=== PATIENT | male | born 1975 | race African-American/Black ===

== ENCOUNTER 2021-03-22 20:35 | Inpatient (IN) | payer MEDICAID, SELFPAY ==
[~2021-03-22] VITALS: Ht 172.7 cm; Wt 77.3 kg
[2021-03-22 21:19] LABS: HEMATOCRIT 41.2 % (42.0-52.0); HEMOGLOBIN 13.8 g/dl (13.5-17.5); MEAN CORPUSCULAR HEMOGLOBIN 30.8 pg (27.0-33.0); MEAN CORPUSCULAR HGB CONC 33.5 g/dl (32.0-36.5); PLATELET COUNT, AUTOMATED 227 10^3/uL (150-450); RED BLOOD COUNT 4.48 10^6/uL (4.30-6.10); WHITE BLOOD COUNT 10.6 10^3/uL (4.0-10.0)
[2021-03-22 21:44] LABS: AMPHETAMINES LEVEL URINE NEGATIVE (NEGATIVE); BARBITURATES URINE NEGATIVE (NEGATIVE); BENZODIAZEPINES URINE NEGATIVE (NEGATIVE); CANNABINOIDS URINE NEGATIVE (NEGATIVE); COCAINE METABOLITE URINE NEGATIVE (NEGATIVE); METHADONE URINE NEGATIVE (NEGATIVE); OPIATES URINE NEGATIVE (NEGATIVE); PHENCYCLIDINE URINE NEGATIVE (NEGATIVE)
[2021-03-22 21:54] LABS: ACETAMINOPHEN LEVEL < 2.0 UG/ML (10.0-30.0); ALBUMIN 3.7 GM/DL (3.2-5.2); ALT/SGPT 33 U/L (12-78); BILIRUBIN,DIRECT 0.1 MG/DL (0.0-0.2); BILIRUBIN,TOTAL 0.5 MG/DL (0.2-1.0); BLOOD UREA NITROGEN 21 MG/DL (7-18); CALCIUM LEVEL 8.9 MG/DL (8.5-10.1); CARBON DIOXIDE LEVEL 31 MEQ/L (21-32); CHLORIDE LEVEL 108 MEQ/L (98-107); CREATININE FOR GFR 1.02 MG/DL (0.70-1.30); ETHYL ALCOHOL (ETHANOL) 0.003 % (0.000-0.010); GLOMERULAR FILTRATION RATE > 60.0 (>60); GLUCOSE, FASTING 112 MG/DL (70-100); POTASSIUM SERUM 3.7 MEQ/L (3.5-5.1); SALICYLATE LEVEL < 1.7 MG/DL (5.0-30.0); SODIUM LEVEL 145 MEQ/L (136-145); THYROID STIMULATING HORMONE 0.819 uIU/ML (0.358-3.740); TOTAL PROTEIN 7.1 GM/DL (6.4-8.2)
--- NOTE | 2021-03-22 22:53 | REPVR ---
PROCEDURE INFORMATION: Exam: CT Head Without Contrast Exam date and time: 03/22/2021 9:35 PM Age: 45 years old Clinical indication: Altered mental status/memory loss; Confusion or disorientation TECHNIQUE: Imaging protocol: Computed tomography of the head without contrast. Radiation optimization: All CT scans at this facility use at least one of these dose optimization techniques: automated exposure control; mA and/or kV adjustment per patient size (includes targeted exams where dose is matched to clinical indication); or iterative reconstruction. COMPARISON: No relevant prior studies available. FINDINGS: Brain: Normal. No hemorrhage. Unremarkable white matter. No mass effect. Cerebral ventricles: No ventriculomegaly. Paranasal sinuses: Ethmoid sinus mucosal thickening. Mastoid air cells: Visualized mastoid air cells are well aerated. Bones/joints: Unremarkable. No acute fracture. Soft tissues: Unremarkable. IMPRESSION: 1. Ethmoid sinus disease. 2. Otherwise negative noncontrast head CT. Electronically signed by: Sundeep Nagy On 03/22/2021 22:52:31 PM
[2021-03-23 00:57] LABS: RSV AMPLIFICATION NEGATIVE (NEGATIVE)
[2021-03-23] MEDS ORDERED: OLANZapine ORAL DISINTEGRATING TAB 5MG PO PRN (01:05)
[2021-03-23] MEDS ORDERED: MAALOX 30 ML SUSP *UDC PO PRN (01:05)
[2021-03-23] MEDS ORDERED: MOM 30ML SUSPENSION UDC PO PRN (01:05)
[2021-03-23] MEDS ORDERED: ACETAMINOPHEN TAB 650MG DOSE (2X325MG) PO PRN (01:05)
[2021-03-23] MEDS ORDERED: NICOTINE 21MG/24HR 1 EA TRANSDERMAL TD PRN (01:05)
[2021-03-23] MEDS ORDERED: traZODone 50 MG TAB PO ONE (01:05)
[2021-03-23 02:44] VITALS: BP 134/76
[2021-03-23] MEDS ORDERED: INFLUENZA QUADRIVALENT PF VACCINE 0.5ML SYRINGE IM ONE (09:00)
--- NOTE | 2021-03-23 14:05 | HPEPDOC ---
General Date of Admission Mar 22, 2021 at 20:36 Date of Service: Mar 23, 2021 Chief Complaint The patient is a 45-year-old male admitted with a reason for visit of Unspecified Psychotic Disorder. History of Present Illness Patient is 45 years old male without significant past history of presented to the hospital with suicidal ideation. [place] then [place] police approached him to offer assistance, he reported that he was having hallucinations and suicidal ideations. Patient seems to be a very poor historian. During my interview patient denied fever, chills, nausea, malaise, diarrhea or dysuria Home Medications No Active Prescriptions or Reported Meds Allergies Coded Allergies: No Known Allergies (Unverified , 03/22/21) Past Medical History Medical History Did not provide any past medical history Social History * Smoker: current smoker Alcohol: occationally Drugs: other (he told me that he used synthetic drugs) A-FIB/CHADSVASC A-FIB History Current/History of A-Fib/PAF?: No Review of Systems Constitutional: Denies: Chills Eyes: Denies: Pain ENT: Denies: Head Aches Skin: Denies: Rash Pulmonary: Denies: Dyspnea, Cough Cardiovascular: Denies: Chest Pain Gastrointestinal: Denies: Nausea Genitourinary: Denies: Dysuria Hematologic: Denies: Bruising Endocrine: Denies: Polydipsia Musculoskeletal: Denies: Neck Pain Neurological: Denies: Weakness Psych: Reports: Anxiety, Depression Physical Examination General Exam: Positive: Alert, Cooperative Eye Exam: Positive: PERRLA ENT Exam: Positive: Atraumatic Neck Exam: Positive: Supple; Negative: JVD Chest Exam: Positive: Clear to auscultation Heart Exam: Positive: Rate Normal Telemetry: Positive: No significant arrhythmia Abdomen Exam: Positive: Normal bowel sounds Extremity Exam: Negative: Clubbing, Cyanosis Skin Exam: Positive: Nl turgor and temperature Neuro Exam: Positive: Normal Gait Psych Exam: Positive: Oriented x 3 Vital Signs Vital Signs Date Time Temp Pulse Resp B/P (MAP) Pulse Ox O2 Delivery O2 Flow Rate FiO2 03/23/21 02:44 98.1 87 16 134/76 (95) 98 Room Air Laboratory Data Labs 24H Laboratory Tests 2 03/22/21 21:05: Nucleated Red Blood Cells % (auto) 0.0, Anion Gap 6L, Glomerular Filtration Rate > 60.0, Calcium Level 8.9, Total Bilirubin 0.5, Direct Bilirubin 0.1, Aspartate Amino Transf (AST/SGOT) 14, Alanine Aminotransferase (ALT/SGPT) 33, Alkaline Phosphatase 82, Total Protein 7.1, Albumin 3.7, Albumin/Globulin Ratio 1.1, Thyroid Stimulating Hormone (TSH) 0.819, Salicylates Level < 1.7L, Urine Opiates Screen NEGATIVE, Urine Methadone Screen NEGATIVE, Acetaminophen Level < 2.0L, Urine Barbiturates Screen NEGATIVE, Urine Phencyclidine Screen NEGATIVE, Urine Amphetamines Screen NEGATIVE, Urine Benzodiazepines Screen NEGATIVE, Urine Cocaine Metabolite Screen NEGATIVE, Urine Cannabinoids Screen NEGATIVE, Ethyl Alcohol Level 0.003 03/23/21 00:12: Coronavirus (COVID-19)(PCR) NEGATIVE, Influenza Type A (RT-PCR) NEGATIVE, Influenza Type B (RT-PCR) NEGATIVE, Respiratory Syncytial Virus (PCR) NEGATIVE CBC/BMP Laboratory Tests 03/22/21 21:05 Assessment/Plan Patient is 45 years old male without significant past history of presented to the hospital with suicidal ideation. [place] then [place] police approached him to offer assistance, he reported that he was having hallucinations and suicidal ideations. Patient seems to be a very poor historian. During my interview patient denied fever, chills, nausea, malaise, diarrhea or dysuria Problems (1) Psychotic disorder Status: Acute Problem Text: Deferred treatment to psych team Plan / VTE VTE Prophylaxis Ordered?: No VTE Exclusion Mechanical Proph: Low Risk for VTE SHERRY PINON DO Mar 23, 2021 14:05
[2021-03-23 16:18] VITALS: BP 116/57
[2021-03-23] MEDS ORDERED: QUEtiapine FUMARATE 25 MG TAB PO SCH (21:00)
[2021-03-24 06:09] VITALS: BP 117/70
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
[2021-03-24 16:21] VITALS: BP 138/81
[2021-03-24] MEDS ORDERED: QUEtiapine FUMARATE 50MG TAB PO SCH (21:00)
[2021-03-25 06:40] VITALS: BP 95/52
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
--- NOTE | 2021-03-25 10:01 | MHIPN ---
[facility] PROGRESS NOTE DATE: 03/24/2021 This is a video assessment, I am at home, he is at the inpatient psychiatry unit, he is seen in the presence of staff. VITAL SIGNS: Blood pressure 117/70, pulse 83, temperature 97.9. CHIEF COMPLAINT: Says feels okay. SUBJECTIVE: Seen for followup. Indicates feels okay, but says would not wish to elaborate on that, as others would hear him, including the people who he thinks have been following him, and listening to him. I asked if he would feel more comfortable if staff were to leave, and he would see me alone, but he indicated that would not matter. Says would want to be brief, and that he had slept well, he wondered if I could increase the Seroquel, in fact if I could double it. Says appetite has been okay. MENTAL STATUS EXAMINATION: He is neat, he is guarded, there is no agitation, no psychomotor retardation, he is not irritable at present, and answers questions briefly, logically, but coherently. Affect is restricted in range. Does not appear to be internally preoccupied, but alludes to hearing voices. He is paranoid. Cognition grossly intact, judgment and insight remain compromised. ASSESSMENT: Major depressive disorder with psychotic features. Rule out schizophrenia. Rule out bipolar disorder, current episode mixed with psychotic features. Remains guarded, paranoid, has tolerated the Seroquel quite well so far, had the first dose yesterday. PLAN: The Seroquel will be increased to 15 mg daily, and will be titrated up as indicated. Will look at asking him to participate in activities in the unit, as tolerated. Further recommendations will be made depending on the clinical picture. He will be seeing the clinician assigned to him tomorrow.
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
[2021-03-25 17:17] VITALS: BP 101/55
[2021-03-25] MEDS: QUEtiapine FUMARATE 25 MG TAB PO SCH (20:54)
[2021-03-26 07:19] VITALS: BP 111/62
--- NOTE | 2021-03-26 12:11 | MHIPNPDOC ---
[facility] Progress Note Progress Note DATE OF SERVICE: 03/26/21 The patient denies any new issues or problems and has been maintaining very good control. He is however extremely paranoid and guarded, and repeatedly asking why we need his Social Security number. He stated that he doesn't want to go to a intermediate in [place] and he does not feel safe to go there, but he might be able to come up with some place he would feel safe. He still feels that one of the patient doesn't like him, wants him out of here, but denies any intent to act out of his paranoid and has been maintaining fairly good control and very superficial but pleasant to other people. He is denying any command hallucination and denies any suicidal or homicidal ideas, but is still reluctant to take any more medication. HISTORY: . VITAL SIGNS: See below. NEW TEST RESULTS: . CURRENT MEDICATIONS: See below. MENTAL STATUS EXAMINATION: Patient is a 45-year old male, who is in good control in no acute distress. Speech: Is , relevant, but not productive. Language skills are good. Thought processes including: Preoccupied and very evasive. Thought content: Maintaining chronic paranoid delusional thinking. Abstract reasoning, and computation: fair. Description of associations: , Relevant, but preoccupied with his paranoia. Description of abnormal or psychotic thoughts: Markedly paranoid, but denies any command hallucination and denies any thoughts of progressive nature. Judgment: poor. Insight: poor. Orientation: , Oriented. Recent and remote memory: Good. Attention span and concentration: fair. Language: . Fund of knowledge: . Mood: , Mildly anxious. Affect: Showing good range, but very guarded. DIAGNOSES: 1. . Schizophrenia, paranoid nature 2. . 3. . ASSESSMENT:, No significant change, but no acting out behavior MANAGEMENT PLAN: Continued supportive therapy and education and lethality evaluation. TIME SPENT: 20 minutes. Vital Signs Vital Signs Date Time Temp Pulse Resp B/P (MAP) Pulse Ox O2 Delivery O2 Flow Rate FiO2 03/26/21 07:19 98.3 51 20 111/62 (78) 98 Room Air Current Medications Current Medications Medications (Trade) Dose Ordered Sig/Elvi Route PRN Reason Start Time Stop Time Status Last Admin Dose Admin Acetaminophen (Tylenol Tab) 650 mg Q6HP PRN PO HEADACHE or MILD DISCOMFORT 03/23/21 01:05 Al Hydrox/Mg Hydrox/Simethicone (Mylanta) 30 ml Q4HP PRN PO HEARTBURN/INDIGESTION 03/23/21 01:05 Home Med (Med Rec Complete!) ASDIRECTED XX 03/23/21 00:25 03/23/21 00:28 DC Magnesium Hydroxide (Milk Of Magnesia) 30 ml DAILYPRN PRN PO CONSTIPATION 03/23/21 01:05 Nicotine (Nicoderm Cq 21mg) 1 patch DAILY PRN TD NICOTINE WITHDRAWAL 03/23/21 01:05 Olanzapine (ZyPREXA ZYDIS) 5 mg Q4HP PRN PO AGITATION 03/23/21 01:05 Quetiapine Fumarate (SEROquel) 25 mg QHS PO 03/23/21 21:00 03/24/21 12:35 DC 03/23/21 21:26 Quetiapine Fumarate (SEROquel) 50 mg QHS PO 03/24/21 21:00 03/25/21 09:22 DC 03/24/21 21:58 Quetiapine Fumarate (SEROquel) 75 mg QHS PO 03/25/21 21:00 03/25/21 20:54 Allergies Coded Allergies: No Known Allergies (Unverified , 03/22/21) NATHANAEL FAITH M.D. Mar 26, 2021 12:11
[2021-03-26 18:36] VITALS: BP 116/73
[2021-03-26] MEDS: QUEtiapine FUMARATE 25 MG TAB PO SCH (20:12)
[2021-03-27 06:37] VITALS: BP 124/61
--- NOTE | 2021-03-27 08:55 | MHIPNPDOC ---
[facility] Progress Note Progress Note DATE OF SERVICE: 03/27/21 So far. The patient is maintaining good control without any aggressive or agitated behavior. He remains markedly paranoid and is questioning if the social worker health services has no authority to use his Social Security number and was explained that social worker health services would need those information to arrange for support system. He is quite hostile and paranoid, but also trying to be intimidating and passively threatening, but no acting out behavior. Patient was told that he will not be retained on involuntary status if he is not pausing any significant immediate danger to himself or others and will be discharged if he has a safe housing or safe discharge plan, and the patient understood this but stated that he doesn't have any safe place to go and would prefer to stay on the unit for the time being. I will increase his Seroquel 100 mg at bedtime and continue with supportive therapy and develop a safe discharge plan. HISTORY: . VITAL SIGNS: See below. NEW TEST RESULTS: . CURRENT MEDICATIONS: See below. MENTAL STATUS EXAMINATION: Patient is a 45-year old male, who is in no acute distress. Speech: Is , not spontaneous. Language skills are good. Thought processes including: , Relevant, but not spontaneous. Thought content: Markedly paranoid content. Abstract reasoning, and computation: fair. Description of associations: Preoccupied with his paranoid thoughts. Description of abnormal or psychotic thoughts: Grossly paranoid with a chronic paranoid delusional thinking, but no command hallucination and denies any intent to act out. Judgment: poor. Insight: very poor. Orientation: , Oriented. Recent and remote memory: Appears intact. Attention span and concentration: fair. Language: . Fund of knowledge: . Mood: . Affect: . DIAGNOSES: 1. ., Schizophrenia, paranoid 2. . 3. . ASSESSMENT: No significant change and remains markedly paranoid, but no acting out behavior MANAGEMENT PLAN: Increase the Seroquel and continued supportive therapy. TIME SPENT: 20 minutes. Vital Signs Vital Signs Date Time Temp Pulse Resp B/P (MAP) Pulse Ox O2 Delivery O2 Flow Rate FiO2 03/27/21 06:37 98.2 56 14 124/61 (82) 98 Room Air Current Medications Current Medications Medications (Trade) Dose Ordered Sig/Elvi Route PRN Reason Start Time Stop Time Status Last Admin Dose Admin Acetaminophen (Tylenol Tab) 650 mg Q6HP PRN PO HEADACHE or MILD DISCOMFORT 03/23/21 01:05 Al Hydrox/Mg Hydrox/Simethicone (Mylanta) 30 ml Q4HP PRN PO HEARTBURN/INDIGESTION 03/23/21 01:05 Home Med (Med Rec Complete!) ASDIRECTED XX 03/23/21 00:25 03/23/21 00:28 DC Magnesium Hydroxide (Milk Of Magnesia) 30 ml DAILYPRN PRN PO CONSTIPATION 03/23/21 01:05 Nicotine (Nicoderm Cq 21mg) 1 patch DAILY PRN TD NICOTINE WITHDRAWAL 03/23/21 01:05 Olanzapine (ZyPREXA ZYDIS) 5 mg Q4HP PRN PO AGITATION 03/23/21 01:05 Quetiapine Fumarate (SEROquel) 25 mg QHS PO 03/23/21 21:00 03/24/21 12:35 DC 03/23/21 21:26 Quetiapine Fumarate (SEROquel) 50 mg QHS PO 03/24/21 21:00 03/25/21 09:22 DC 03/24/21 21:58 Quetiapine Fumarate (SEROquel) 75 mg QHS PO 03/25/21 21:00 03/26/21 20:12 Allergies Coded Allergies: No Known Allergies (Unverified , 03/22/21) NATHANAEL FAITH M.D. Mar 27, 2021 08:55
[2021-03-27] MEDS ORDERED: QUEtiapine FUMARATE 100 MG TAB PO SCH (21:00)
--- NOTE | 2021-03-29 12:25 | MHDSPDOC ---
[facility] Discharge Summary Discharge Summary DATE OF ADMISSION: Mar 22, 2021 at 20:36 DATE OF DISCHARGE: Mar 27, 2021 at 12:57 DISCHARGE DIAGNOSES: 1. ., Schizophrenia, paranoid 2. . REASON FOR ADMISSION: 45-year-old single male with a long psychiatric history admitted after he was picked up by state police while he was walking on the highway. Patient claimed that he was on the way to [place] to escape from [place] because he felt unsafe due to his belief that member of street gang is after him. Patient apparently has history of several prior admissions due to his paranoia and has been traveling from [facility]. CONSULTANTS INVOLVED: TREATMENT AND PROGRESS ON THE UNIT : The patient is very reluctant to take any medicine because he doesn't believe he is sick and he is psychiatrically in need of treatment. He did agree to take some Seroquel and started on 25 mg increased to 100 mg at bedtime and he apparently took it, but at the time of his discharge. He didn't want any treatment and did not want any prescriptions.. HOSPITAL COURSE: The patient was seen for daily supportive therapy and lethality evaluation. Patient remained grossly paranoid and continued to believe that his life is in danger and people are following him. The patient, however, denies any intent to act out on that and stated that he has no history of violence and he has no intent to harm anybody. He remained a somewhat guarded, preoccupied, and isolated in his room, but he is maintained good control and didn't have any aggressive or agitated outburst and maintained good control. He denies feeling depressed and denies any suicidal thoughts and denies any history of suicidal attempt. The social work tried to refer him to a social service will refer him to a senior living, but patient refused to cooperate and is requesting discharge. Patient was explained the need for safe discharge plan the patient is refusing to cooperate or wait for any safe plan to be in place. Since the patient is not showing any dangerous behavior to himself or others and is not willing to accept any assistance, he will be discharged since he does not meet the involuntary retention criteria. DISCHARGE ASSESSMENT: Remained paranoid, but no suicidal or homicidal thoughts or behaviors. MENTAL STATUS EXAMINATION ON DISCHARGE: Patient is a 45-year old male, who is , guarded and paranoid. Speech is relevant, but not productive . Language skills are fair. Thought processes including: Relevant. Thought content: Markedly paranoid. Abstract reasoning, and computation: poor. Description of associations: , Relevant, coherent. Description of abnormal or psychotic thoughts: Marked paranoid ideas but denies any command hallucination and denies any lethality issues. Judgment: poor. Insight: poor. Orientation to , well oriented. Recent and remote memory: Unimpaired. Attention span and concentration: fair. Language: . Fund of knowledge: . Mood: , Moderately anxious, but denies any serious depression. Affect: , Guarded, somewhat hostile and blunted. MEDICATIONS ON DISCHARGE: - for . Patient refused any medications - for . - for . PLAN/FOLLOWUP ARRANGEMENTS: Patient refused any follow-up treatment. The amount of time spent in the coordination of care for this patient was approximately 30 minutes. ETOH/Disorder Med Rx ETOH/DRUG DISORDER RX: N/A Vital Signs/I&Os Vital Signs Date Time Temp Pulse Resp B/P (MAP) Pulse Ox O2 Delivery O2 Flow Rate FiO2 03/27/21 09:00 Room Air 03/27/21 06:37 98.2 56 14 124/61 (82) 98 Medications No Active Prescriptions or Reported Meds Allergies Coded Allergies: No Known Allergies (Unverified , 03/22/21) NATHANAEL FAITH M.D. Mar 29, 2021 12:25
== END 2021-03-27 12:57 | disposition home or self-care (01) | DRG 750 ==
LOC: M ED 20:35 → M ED INP 20:36 → M PSY 03-23 01:53
PROVIDERS: ADMIT Psychiatry & Neurology Psychiatry; ATTEND Psychiatry & Neurology Psychiatry
DX: F20.0 Paranoid schizophrenia (principal); Z91.19 Patient's noncompliance with other medical treatment and regimen; Z63.8 Other specified problems related to primary support group; R45.851 Suicidal ideations; F17.200 Nicotine dependence, unspecified, uncomplicated; Z20.822 Contact with and (suspected) exposure to COVID-19; F32.3 Major depressive disorder, single episode, severe with psychotic features

== ENCOUNTER 2021-03-27 17:49 | Emergency (ER) | payer MEDICAID ==
[~2021-03-27] VITALS: Ht 172.7 cm; Wt 70.0 kg
[2021-03-27 20:09] LABS: HEMATOCRIT 43.6 % (42.0-52.0); HEMOGLOBIN 14.9 g/dl (13.5-17.5); MEAN CORPUSCULAR HEMOGLOBIN 30.8 pg (27.0-33.0); MEAN CORPUSCULAR HGB CONC 34.2 g/dl (32.0-36.5); MEAN CORPUSCULAR VOLUME 90.1 fl (80.0-96.0); PLATELET COUNT, AUTOMATED 281 10^3/uL (150-450); RED BLOOD COUNT 4.84 10^6/uL (4.30-6.10); WHITE BLOOD COUNT 16.3 10^3/uL (4.0-10.0)
[2021-03-27 20:31] LABS: AMPHETAMINES LEVEL URINE NEGATIVE (NEGATIVE); BARBITURATES URINE NEGATIVE (NEGATIVE); BENZODIAZEPINES URINE NEGATIVE (NEGATIVE); CANNABINOIDS URINE NEGATIVE (NEGATIVE); COCAINE METABOLITE URINE NEGATIVE (NEGATIVE); METHADONE URINE NEGATIVE (NEGATIVE); OPIATES URINE NEGATIVE (NEGATIVE); PHENCYCLIDINE URINE NEGATIVE (NEGATIVE)
[2021-03-27 20:37] LABS: ACETAMINOPHEN LEVEL < 2.0 UG/ML (10.0-30.0); ALBUMIN 4.2 GM/DL (3.2-5.2); ALT/SGPT 33 U/L (12-78); BILIRUBIN,DIRECT < 0.1 MG/DL (0.0-0.2); BILIRUBIN,TOTAL 0.3 MG/DL (0.2-1.0); BLOOD UREA NITROGEN 18 MG/DL (7-18); CALCIUM LEVEL 8.9 MG/DL (8.5-10.1); CARBON DIOXIDE LEVEL 28 MEQ/L (21-32); CHLORIDE LEVEL 107 MEQ/L (98-107); ETHYL ALCOHOL (ETHANOL) < 0.003 % (0.000-0.010); GLOMERULAR FILTRATION RATE > 60.0 (>60); GLUCOSE, FASTING 79 MG/DL (70-100); POTASSIUM SERUM 4.2 MEQ/L (3.5-5.1); SALICYLATE LEVEL < 1.7 MG/DL (5.0-30.0); SODIUM LEVEL 142 MEQ/L (136-145); TOTAL PROTEIN 7.9 GM/DL (6.4-8.2)
[2021-03-28 17:21] LABS: RSV AMPLIFICATION NEGATIVE (NEGATIVE)
--- NOTE | 2021-03-28 17:58 | ECGEPIP ---
[facility] - ED Test Date: 2021-03-27 Pat Name: ELOISA BERNSTEIN Department: Room: - Gender: Male Chief Of Safety And Protection: KACY : 1975 Requested By: MAUREEN Fischer Order Number: [id number] Reading MD: Rosa M Abrams Measurements Intervals [place] Rate: 57 P: 58 ME: 166 QRS: 77 QRSD: 100 T: 42 QT: 450 QTc: 438 Interpretive Statements Sinus bradycardia No prior Electronically Signed on 03-28-2021 17:58:14 EDT by Rosa M Abrams
[2021-03-28] MEDS ORDERED: LORazepam 2 MG/ML VIAL IM ONE (20:10)
[2021-03-28] MEDS ORDERED: diphenhydrAMINE 50MG/ML VIAL (J1200) IM ONE (20:10)
[2021-03-28] MEDS ORDERED: OLANZapine INTRAMUSCULAR 10MG VIAL IM ONE (20:10)
[2021-03-28] MEDS ORDERED: OLANZapine ORAL DISINTEGRATING TAB 5MG PO ONE (20:20)
[2021-03-28] MEDS ORDERED: QUEtiapine FUMARATE 100 MG TAB PO ONE (22:40)
[2021-03-29 00:10] VITALS: BP 129/58
== END 2021-03-29 00:15 ==
LOC: M ED 17:49
DX: F22 Delusional disorders (principal); F29 Unspecified psychosis not due to a substance or known physiological condition; F17.200 Nicotine dependence, unspecified, uncomplicated